=== PATIENT | male | born 1955 | race Caucasian/White ===

== ENCOUNTER → 2016-10-02 | Day surgery (SDC) | payer BC ==
[~2016-10-02] VITALS: Ht 185.4 cm; Wt 113.5 kg
[~2016-10-02] MED LIST: ACETAMINOPHEN 325 MG TAB PO PRN; ADVIN25/60 INH; ALBU18002 INH; ASPI81TA28 PO; ATROPINE SULFATE 0.1 MG/ML 5ML SYR IV PRN; FENO160T PO; FENTANYL CITRATE INJ 50 MCG/1 ML 2 ML VIAL ONE; HEPARIN SOD (PORCINE) 1000 UNIT/ML 10 ML VIAL ONE; LEVO150T9 PO; LORA-741 PO; LOSA100T2 PO; METO50TA16 PO; MIDAZOLAM HCL 1 MG/ML 2ML VIAL ONE; MIRT15TA2 PO; MULT-506 PO; NITROGLYCERIN 0.4 MG SL PER TAB CHARGE ONE; NITROGLYCERIN/D5W 100MCG/ML 20ML SYR ONE; NiCARDipine HCL INJ 2.5 MG/ML 10 ML AMP ONE; OMEG10007 PO; ONDANSETRON INJ 2 MG/ML 2 ML VIAL IV PRN; PRAV20TA PO; SODIUM CHLORIDE 0.9% 1000ML 250 ML IV PRN
[2016-10-02 07:18] VITALS: Ht 185.4 cm; Wt 113.5 kg
[2016-10-02 07:19] VITALS: BP 117/64; PULSE 68; TEMP 36.6; O2SAT 96
--- NOTE | 2016-10-02 09:41 | Procedure Note ---
Post-Mod Sedation Assessment General Date of Moderate Sedation Oct 02, 2016. Vital Signs: Vital Signs Past 12 Hours Date Time Temp Pulse Resp B/P Pulse Ox O2 Delivery O2 Flow Rate FiO2 10/02/16 09:30 80 20 107/61 92 Nasal Cannula 3 10/02/16 07:19 36.6 68 16 117/64 96 Room Air Review - Discharge Criteria Vital Signs Stable: Yes Alert/Oriented/Conversant: Yes Returned to Baseline Mental St: Yes Nausea Absent/Minimal: Yes Pain/Discomfort/Absent/Minimal: Yes Normal/Baseline Respirations: Yes Active Bleeding?: No Pt Received D/C Instructions: Yes Prescriptions Given: None Specific Proced. D/C Criteria Distal Pulses Present (Cardiac: Yes Discharged Patients Adult Escort/Transportation: Yes
--- NOTE | 2016-10-02 09:42 | Procedure Note ---
Pre-Mod Sedation Assessment General Date of Moderate Sedation: Oct 02, 2016. Vital Signs: Vital Signs Past 12 Hours Date Time Temp Pulse Resp B/P Pulse Ox O2 Delivery O2 Flow Rate FiO2 10/02/16 09:30 80 20 107/61 92 Nasal Cannula 3 10/02/16 07:19 36.6 68 16 117/64 96 Room Air Review Cardiovascular: regular rate, rhythm, no edema Abdomen: normal bowel sounds, non tender, soft, no organomegaly Lungs: chest non-tender, lungs clear Pre-Sedation Airway Assessment Oral Cavity: Chipped Teeth, Dentures, Dental Abnormalities Short Thick Neck: No Hx of Sleep Apnea: Yes Smoking Status: Former Smoker Mallampati Classification: Class III Procedure Planning Contraindications-for Mod Sed: None Yes Notes The planned sedation has been discussed with the patient and consent obtained. I have identified the patient, determined the appropriateness of sedation and have assessed the patient immediately prior to the procedure. All medicine(s) and interventions are by my order.
--- NOTE | 2016-10-02 09:54 | Cardiac Catheterization ---
Procedure Note Procedure Date Oct 02, 2016. Pre-Procedure Diagnosis Positive Stress Test AUC Score 9 Post-Procedure Diagnosis Normal Coronary Arteries Procedure(s) Performed Coronary Angiography, Left Heart Cath Lathe Set Up Operator Dr. Almanzar Senior Bi Developer(s) Gama RANDALL Estimated Blood Loss 5cc Summary of Findings Normal coronary arteries Patient experienced arm discomfort with use of 5F 3.5 brachial catheter. Radial spasm noted. Patient tolerated 4F JR4. Ischemia reported in the apical LAD territory per nuclear stress test. The LAD was well visualized without significant disease. Hemodynamics Rest Ao: 101/66/82 Final Ao: 101/65/80 LV: 109/8/17 Recommendations None Specimens None Radiation Exposure (mGy) 2248 Contrast (mls) 90 Procedural Complication(s) None Disposition Dry Wall Plasterer Holding/Recovery ACC Data Cardiac Status Clinical evaluation leading to the procedure CAD Presntation: Positive Stress Test Anginal Classification: CCS I Heart Failure: No Coronary Anatomy Dominant: Right Left Main (% Stenosis): Normal LAD (% Stenosis): Normal D1 (% Stenosis): Normal D2 (% Stenosis): Normal D3 (% Stenosis): Normal Circumflex (% Stenosis): Normal OM1 (% Stenosis): Normal RCA (% Stenosis): Normal R PDA (% Stenosis): Normal (Apical segment not well visualized due to subselective injection) R PL1 (% Stenosis): Normal (Apical segemnt not well visualized secondary to subselective injection) AM (% Stenosis): Normal Ramus (% Stenosis): Normal Diagnostic Status: Elective Closure Device Percutaneous Entry Location: Radial (Patient experienced arm discomfort with use of 5F 3.5 brachial catheter. Radial spasm noted. Patient tolerated 4F JR4. ) Closure Device: Radial Band Recommendations: None, Medical therapy and/or Counseling Intraprocedure Events Significant Dissection: No Perforation: No
--- NOTE | 2016-10-02 09:56 | Discharge Instructions ---
Discharge Instructions Procedure Procedure Date: Oct 02, 2016. Reason for Visit: Abn Stress Test * To Do. Discharge Discharge Date: Oct 02, 2016. Discharge Diagnosis: status post cardiac catheterization. Normal coronary arteries. See full report for details. Last Recorded Wt (Kilograms): 113.5 Anesthesia Post Anesthesia Instructions: If you have had General Anesthesia or IV Sedation: * Do not drive today. * Resume driving when surgeon permits. * Do not make important decisions or sign legal documents today. * Call surgeon for: 1. Temperature elevations greater than 101 degrees F. 2. Uncontrollable pain. 3. Excessive bleeding. 4. Persistent nausea and vomiting. 5. Medication intolerance (nausea, vomiting or rash). * For nausea and vomiting use only clear liquids such as: tea, soda, bouillon until nausea subsides, then gradually increase diet as tolerated. * If you have any concerns or questions, call your surgeon's office. If physician is unavailable and it is an emergency, call 911 or go to the nearest emergency room. Instructions Activity Recommendations: limitations as noted below Return to School/Work: with the following limitations Recommended Home Diet: resume previous diet Allergies: Coded Allergies: Amlodipine (Unverified Allergy, Unknown, Rash, 10/02/16) Rofecoxib (Unverified Allergy, Unknown, Unknown, 10/02/16) Atorvastatin (Unverified Adverse Reaction, Unknown, Leg weakness, 10/02/16) Simvastatin (Unverified Adverse Reaction, Unknown, Leg weakness, 10/02/16) Provider Instructions ACTIVITY RECOMMENDATIONS: Excess manipulation of the wrist should be avoided for the next 24-48 hours. * No lifting over 2 pounds (approximately a 1/2 gallon of milk) with the utilized arm for 24 hours. * No strenuous activity such as bowling or tennis for 3 days. * Keep the site of the procedure covered with a bandage for 24 hours. *You may shower the day after the procedure. Do not take a tub bath or submerge the puncture site in water for the next 3 days. *Do not operate any motorized equipment for 3 days. SPECIAL CARE INSTRUCTIONS: The site may be slightly bruised and sore following your procedure. Should any of the following occur, contact the DrSary who performed your procedure. 1. Redness/inflammation, swelling, chills, or fever, or colored drainage at procedure site within 3-7 days after your procedure. 2. Coldness, discoloration, ongoing numbness, severe pain, or swelling. Expect mild tingling of hand and tenderness at the puncture site for up to three days. If this persists beyond three days, or other symptoms develop, notify the Dr. who performed your procedure. BLEEDING: If the procedure site on your wrist begins to bleed, do not panic 1. Place 1 or 2 fingers firmly just slightly above the insertion site to stop the bleeding. You may be able to feel your pulse as you hold pressure. 2. Lift your finger after 5 minutes to see if the bleeding has stopped. 3. Once the bleeding has stopped, gently wipe the wrist area clean with a bandage. * If the bleeding from your wrist does not stop after 10 minutes, or if there is a large amount of bleeding or spurting, call 911 ([address] drive yourself to the hospital). SKIN IRRITATION: * You may experience some redness and/or swelling in the area where radiation was administered. If any skin irritation occurs, please contact your family physician. FOLLOW UP VISIT: Keep any scheduled doctor appointments. Follow Up Follow-up with: Dr. Alvares as scheduled [facility] Recommendations: Call your doctor if: * Temperature above 101 degrees * Pain not relieved by pain medicine ordered * There is increased drainage or redness from any incision * You have any unanswered questions or concerns. Your Doctors Instructions noted above were prepared by provider Moo Almanzar. Patient Signature Section: Patient Instructions Signature Page Calixto Baker Patient (or Guardian) Signature/Date: I have read and understand the instructions given to me by my caregivers. Caregiver/RN/Doctor Signature/Date: The above-named patient and/or guardian has received patient instructions on this date. + Original Patient Signature Page (only) stays with chart. Please make copy for patient.
[2016-10-02 12:15] VITALS: BP 98/67; PULSE 80; O2SAT 94
== END | disposition home or self-care (01) ==
LOC: C.CATH 06:07
PROVIDERS: ATTEND Internal Medicine Cardiovascular Disease
DX: I48.0 Paroxysmal atrial fibrillation (principal); I10 Essential (primary) hypertension; E05.90 Thyrotoxicosis, unspecified without thyrotoxic crisis or storm; E78.2 Mixed hyperlipidemia; Z87.891 Personal history of nicotine dependence; Z98.890 Other specified postprocedural states